=== PATIENT | male | born 2000 | race Caucasian/White ===

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

== ENCOUNTER 2025-02-02 10:15 | Emergency (ER) | payer BC ==
[2025-02-02 10:41] VITALS: TEMP 98
[2025-02-02 11:52] VITALS: PULSE 55; O2SAT 95
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
[2025-02-02 12:51] VITALS: BP 91/43; RESP 16
== END 2025-02-02 12:52 | disposition home or self-care (01) ==
LOC: ED 10:15
DX: S16.1XXA Strain of muscle, fascia and tendon at neck level, initial encounter (principal); S46.912A Strain of unspecified muscle, fascia and tendon at shoulder and upper arm level, left arm, initial encounter; S46.911A Strain of unspecified muscle, fascia and tendon at shoulder and upper arm level, right arm, initial encounter; V49.40XA Driver injured in collision with unspecified motor vehicles in traffic accident, initial encounter; R51.9 Headache, unspecified; I10 Essential (primary) hypertension